=== PATIENT | female | born 1985 | race Caucasian/White ===

== ENCOUNTER 2019-07-12 02:10 | Inpatient (IN) | payer OTHER | END 2019-07-14 10:55 | disposition home or self-care (01) | LOC: JDEL 02:10 → JLDR 02:30 → J3W 17:06 ==

== ENCOUNTER 2024-08-14 09:35 | Inpatient (IN) | payer OTHER ==
[2024-08-14] MEDS: ELECTROLYTE-148 SOLN 1,000 ML IV SCH (11:10)
[2024-08-14 11:39] LABS: INR 0.94 (0.83-1.09); PROTHROMBIN TIME (PATIENT) 10.6 SEC (9.7-13.0)
[2024-08-14 11:42] LABS: ACTIVATED PTT 27.3 SECONDS (25.2-36.5)
[2024-08-14 11:50] LABS: BASO % 0.5 % (0-2.0); EOS % 0.5 % (0-4.5); HEMATOCRIT 39.6 % (32.4-45.2); HEMOGLOBIN 12.8 GM/dL (10.7-15.3); LYMPH % 18.7 % (8-40); MCH 29.2 pg (25.7-33.7); MCHC 32.4 g/dl (32.0-36.0); MEAN CELL VOLUME 90.2 fl (80-96); MEAN PLT VOLUME 11.3 fl (7.5-11.1); MONO % 7.4 % (3.8-10.2); NEUT % 72.9 % (42.8-82.8); PLATELET COUNT 182 10^3/uL (134-434); RBC 4.39 M/mm3 (3.60-5.2); RDW 14.8 % (11.6-15.6); WHITE BLOOD COUNT 7.3 K/mm3 (4.0-10.0)
[2024-08-14 12:09] LABS: CALCIUM 8.7 mg/dL (8.5-10.1)
[2024-08-14 12:10] LABS: BLOOD UREA NITROGEN 6.3 mg/dL (7-18)
[2024-08-14 12:13] LABS: CREATININE 0.7 mg/dL (0.55-1.3)
[2024-08-14 12:26] VITALS: BMI 31.8
[2024-08-14] MEDS ORDERED: OXYTOCIN 30 UNITS in 0.9% NS 30 UNIT/500 ML INFUS.BAG IVPB ONE (14:32)
[2024-08-14] MEDS: OXYTOCIN 30 UNITS in 0.9% NS 30 UNIT/500 ML INFUS.BAG IVPB SCH (14:36)
[2024-08-14] MEDS ORDERED: AMPICILLIN SODIUM 2 GM VIAL ONE (18:22)
[2024-08-14] MEDS: AMPICILLIN - 2 GM in SODIUM CHLORIDE 100 ML IVPB ONE (18:26)
[2024-08-14] MEDS ORDERED: OXYTOCIN 20 UNITS in 0.9% NS 20 UNIT/1,000 ML INFUS.BAG IV ONE (19:01)
[2024-08-14] MEDS ORDERED: MISOPROSTOL 200 MCG TABLET ONE (19:01)
[2024-08-14] MEDS ORDERED: LIDOCAINE HCL 1% PRESERVATIVE FREE - 30ML VIAL ONE (19:02)
[2024-08-14] MEDS: OXYTOCIN 20 UNITS in 0.9% NS 20 UNIT/1,000 ML INFUS.BAG IV SCH (19:30)
[2024-08-14] MEDS: MISOPROSTOL 200 MCG TABLET PR ONE (19:35)
[2024-08-14] MEDS ORDERED: oxyCODONE HCL 5 MG TABLET PO PRN (19:46)
[2024-08-14] MEDS ORDERED: ACETAMINOPHEN 325 MG TABLET (FP) PO PRN (19:46)
[2024-08-14] MEDS ORDERED: BENZOCAINE 20% 57 GM BOTTLE TP PRN (19:46)
[2024-08-14] MEDS ORDERED: BENZOCAINE 28 GM HEMORRHOIDAL OINTMENT TP PRN (19:46)
[2024-08-14] MEDS ORDERED: METHYLERGONOVINE MALEATE 0.2 MG/1 ML AMP IM PRN (19:46)
[2024-08-14] MEDS ORDERED: WITCH HAZEL 50% (TUCKS) 40 PAD/JAR PAD TP PRN (19:46)
[2024-08-14] MEDS ORDERED: BISACODYL 10 MG SUPP.RECT RC PRN (19:46)
[2024-08-14] MEDS ORDERED: IBUPROFEN 600 MG TABLET (FP) PO ONE (20:32)
[2024-08-14] MEDS: IBUPROFEN 600 MG TABLET (FP) PO PRN (20:35)
[2024-08-14] MEDS ORDERED: AMPICILLIN - 1 GM in SODIUM CHLORIDE 100 ML IVPB SCH (21:30)
[2024-08-15] MEDS ORDERED: PROMETHAZINE HCL 25 MG/1 ML VIAL ONE (00:41)
[2024-08-15] MEDS ORDERED: BUTORPHANOL TARTRATE 2 MG/ML VIAL ONE (00:41)
[2024-08-15 08:21] LABS: BASO % 0.4 % (0-2.0); EOS % 0.1 % (0-4.5); HEMATOCRIT 37.6 % (32.4-45.2); HEMOGLOBIN 12.2 GM/dL (10.7-15.3); LYMPH % 11.3 % (8-40); MCH 29.4 pg (25.7-33.7); MCHC 32.5 g/dl (32.0-36.0); MEAN CELL VOLUME 90.7 fl (80-96); MEAN PLT VOLUME 11.4 fl (7.5-11.1); MONO % 6.9 % (3.8-10.2); NEUT % 81.3 % (42.8-82.8); PLATELET COUNT 174 10^3/uL (134-434); RBC 4.15 M/mm3 (3.60-5.2); RDW 14.5 % (11.6-15.6); WHITE BLOOD COUNT 12.3 K/mm3 (4.0-10.0)
[2024-08-15] MEDS ORDERED: SENNOSIDES/DOCUSATE COMBO (SENNA PLUS) TABLET (UD) PO PRN (22:00)
[2024-08-16 10:25] VITALS: BP 99/61; PULSE 89; RESP 17; TEMP 98.1
== END 2024-08-16 13:00 | disposition home or self-care (01) | DRG 560 ==
LOC: JLDR 09:35 → J3W 21:36
PROVIDERS: ADMIT Obstetrics & Gynecology; ATTEND Obstetrics & Gynecology
PROC: 10E0XZZ Delivery of Products of Conception, External Approach (ICD-10-PCS; principal; 2024-08-14)
PROC: 0HQ9XZZ Repair Perineum Skin, External Approach (ICD-10-PCS; 2024-08-14)
DX: O24.424 Gestational diabetes mellitus in childbirth, insulin controlled (principal); O70.0 First degree perineal laceration during delivery; Z3A.39 39 weeks gestation of pregnancy; Z37.0 Single live birth
CPT/HCPCS: 36415; 59409; 80048; 82962; 85025; 85610; 85730; 86780; 86850; 86900; 86901